=== PATIENT | male | born 1970 | race American Indian/Alaskan Native ===

== ENCOUNTER 2017-09-13 01:59 | Emergency (ER) | payer OTHER ==
[2017-09-13] MEDS ORDERED: PROVENTIL IH ONE (03:22)
[2017-09-13] MEDS ORDERED: DELTASONE PO ONE (04:02)
[2017-09-13] MEDS ORDERED: DUONEB *Not for PRN Use IH ONE ×2 (04:02→04:12)
--- NOTE | 2017-09-13 04:05 | Emergency Department Report ---
ED Asthma HPI - General Chief Complaint: Adult Asthma Stated Complaint: ASTHMA Time Seen by Provider: 09/13/17 03:49 Source: patient Mode of arrival: Ambulatory Limitations: No Limitations - History of Present Illness Initial Comments: 47-year-old male past medical history asthma, intubated in 2004 for asthma exacerbation presents with complaint of one week of intermittent wheezing and shortness of breath. Patient denies chest pain palpitations shortness of breath at rest. Patient is currently awake alert and oriented 3 speaking in full sentences no audible wheezing or stridor no visible dyspnea or respiratory retractions. Patient states he has been out of his asthma medicine for months due to insurance issues. States that he has been intermittently wheezing this week but could no longer tolerate it earlier this afternoon. Patient states he feels significantly better at the moment of interview because he received a nebulized treatment while in triage. Patient denies any productive cough fever or chills. MD Complaint: "asthma attack", shortness of breath, wheezing - Related Data Previous Rx's Medication Instructions Recorded Last Taken Type ALBUTEROL NEB's [Proventil 0.083% 2.5 mg IH Q4H PRN #25 neb 10/26/13 Unknown Rx NEBS] Cyclobenzaprine [Flexeril] 10 mg PO TID PRN #12 tablet 10/26/13 Unknown Rx Ibuprofen [Motrin] 800 mg PO TID PRN #15 tablet 10/26/13 Unknown Rx traMADol [Ultram 50 MG tab] 50 mg PO Q6HR PRN #12 tablet 10/26/13 Unknown Rx ALBUTEROL NEB's [Proventil 0.083% 2.5 mg IH TID PRN #1 box 08/11/14 Unknown Rx NEBS] Albuterol Sulfate [Ventolin HFA] 2 puff IH Q4H PRN #1 hfa.aer.ad 08/11/14 Unknown Rx predniSONE [Deltasone] 20 mg PO TID #15 tablet 08/11/14 Unknown Rx Albuterol Sulfate [Albuterol 0.63% 0.63 mg IH Q4H PRN #1 box 09/13/17 Unknown Rx NEBS] Albuterol Sulfate [Ventolin Hfa] 1 puff IH Q4H PRN #1 hfa.aer.ad 09/13/17 Unknown Rx predniSONE [Deltasone] 40 mg PO QDAY #10 tab 09/13/17 Unknown Rx Allergies Allergy/AdvReac Type Severity Reaction Status Date / Time aspirin Allergy Unknown Verified 07/26/13 09:14 ED Review of Systems ROS: Stated complaint: ASTHMA Other details as noted in HPI Constitutional: denies: chills, fever Eyes: denies: eye pain, eye discharge, vision change ENT: denies: ear pain, throat pain Respiratory: wheezing. denies: cough, shortness of breath Cardiovascular: denies: chest pain, palpitations Endocrine: no symptoms reported Gastrointestinal: denies: abdominal pain, nausea, diarrhea Genitourinary: denies: urgency, dysuria Musculoskeletal: denies: back pain, joint swelling, arthralgia Skin: denies: rash, lesions Neurological: denies: headache, weakness, paresthesias Psychiatric: denies: anxiety, depression Hematological/Lymphatic: denies: easy bleeding, easy bruising ED Past Medical Hx - Past Medical History Hx Asthma: Yes - Surgical History Additional Surgical History: intubated x 1 2004 - Social History Smoking Status: Never Smoker Substance Use Type: None - Medications Home Medications: Home Medications Medication Instructions Recorded Confirmed Last Taken Type ALBUTEROL NEB's [Proventil 0.083% 2.5 mg IH Q4H PRN #25 neb 10/26/13 Unknown Rx NEBS] Cyclobenzaprine [Flexeril] 10 mg PO TID PRN #12 tablet 10/26/13 Unknown Rx Ibuprofen [Motrin] 800 mg PO TID PRN #15 tablet 10/26/13 Unknown Rx traMADol [Ultram 50 MG tab] 50 mg PO Q6HR PRN #12 tablet 10/26/13 Unknown Rx ALBUTEROL NEB's [Proventil 0.083% 2.5 mg IH TID PRN #1 box 08/11/14 Unknown Rx NEBS] Albuterol Sulfate [Ventolin HFA] 2 puff IH Q4H PRN #1 hfa.aer.ad 08/11/14 Unknown Rx predniSONE [Deltasone] 20 mg PO TID #15 tablet 08/11/14 Unknown Rx Albuterol Sulfate [Albuterol 0.63% 0.63 mg IH Q4H PRN #1 box 09/13/17 Unknown Rx NEBS] Albuterol Sulfate [Ventolin Hfa] 1 puff IH Q4H PRN #1 hfa.aer.ad 09/13/17 Unknown Rx predniSONE [Deltasone] 40 mg PO QDAY #10 tab 09/13/17 Unknown Rx ED Physical Exam - General Limitations: No Limitations General appearance: alert, in no apparent distress - Head Head exam: Present: atraumatic, normocephalic - Eye Eye exam: Present: normal appearance, PERRL, EOMI - ENT ENT exam: Present: mucous membranes moist - Neck Neck exam: Present: normal inspection, full ROM - Respiratory Respiratory exam: Present: normal lung sounds bilaterally (no wheezing on auscultation of lungs bilaterally, no respiratory retractions no sternal retractions on exam). Absent: respiratory distress - Cardiovascular Cardiovascular Exam: Present: regular rate, normal rhythm. Absent: systolic murmur, diastolic murmur, rubs, gallop - GI/Abdominal GI/Abdominal exam: Present: soft, normal bowel sounds - Rectal Rectal exam: Present: deferred - Extremities Exam Extremities exam: Present: normal inspection - Back Exam Back exam: Present: normal inspection - Neurological Exam Neurological exam: Present: alert, oriented X3 - Psychiatric Psychiatric exam: Present: normal affect, normal mood - Skin Skin exam: Present: warm, dry, intact, normal color. Absent: rash ED Course Vital Signs 09/13/17 03:16 Temperature 98.3 F Pulse Rate 86 Respiratory 20 Rate Blood Pressure 119/79 O2 Sat by Pulse 96 Oximetry ED Medical Decision Making - Medical Decision Making A/P: Asthma exacerbation, reactive airway disease 1-refill on albuterol inhaler 2-short course prednisone 3-normal vital signs, patient does not have any audible wheezing or stridor or retractions before discharge. 4- vital signs stable 5- patient to follow up with primary care doctor Critical care attestation.: If time is entered above; I have spent that time in minutes in the direct care of this critically ill patient, excluding procedure time. ED Disposition Clinical Impression: Asthma Qualifiers: Asthma severity: mild Asthma persistence: intermittent Asthma complication type : with acute exacerbation Qualified Code(s): J45.21 - Mild intermittent asthma with (acute) exacerbation Disposition: - TO HOME OR SELFCARE Is pt being admited?: No Does the pt Need Aspirin: No Condition: Stable Instructions: Asthma (ED), Reactive Airways Disease (ED) Prescriptions: Albuterol Sulfate [Albuterol 0.63% NEBS] 0.63 mg IH Q4H PRN #1 box PRN Reason: Wheezing Albuterol Sulfate [Ventolin Hfa] 1 puff IH Q4H PRN #1 hfa.aer.ad PRN Reason: Wheezing predniSONE [Deltasone] 40 mg PO QDAY #10 tab Referrals: [facility] [Outside] - 3-5 Days [facility] [Outside] - 3-5 Days Forms: Work/School Release Form(ED) Time of Disposition: 04:07
[2017-09-13 05:09] VITALS: BP 132/86
== END 2017-09-13 05:13 | disposition home or self-care (01) ==
LOC: ED 01:59
DX: J45.21 Mild intermittent asthma with (acute) exacerbation (principal)
CPT/HCPCS: 94640; 99283; J7512

== ENCOUNTER 2017-09-29 10:45 | Emergency (ER) | payer OTHER ==
[2017-09-29] MEDS ORDERED: PROVENTIL IH ONE (16:47)
[2017-09-29 17:25] VITALS: BP 138/77
--- NOTE | 2017-09-29 18:16 | XRay Report ---
FINAL REPORT PROCEDURE: XR CHEST ROUTINE 2V TECHNIQUE: PA and lateral chest radiographs were obtained. CPT 88032 HISTORY: cough COMPARISON: No prior studies are available for comparison. FINDINGS: Heart: Normal. Mediastinum/Vessels: Normal. Lungs/Pleural space: Normal. Bony thorax: No acute osseous abnormality. Other: IMPRESSION: Negative examination.
[2017-09-29] MEDS ORDERED: TESSALON PERLES PO ONE (18:34)
--- NOTE | 2017-09-29 18:34 | Emergency Department Report ---
ED Asthma HPI - General Chief Complaint: Upper Respiratory Infection Stated Complaint: SOB,COUGH Time Seen by Provider: 09/29/17 16:46 Source: patient Mode of arrival: Ambulatory Limitations: No Limitations - History of Present Illness Initial Comments: This is a 47-year-old male nontoxic, well nourished in appearance, no acute signs of distress presents to the ED with c/o of nonproductive cough, wheezing, and shortness of breathe. Patient stated he only feels short of breathe when does physical activity. Patient currently denies any shortness of breathe in the ED. Patient stated he has not taken his inhaler as he does not have it but has taken the nebulizer which he stated made him feel a little better. Patient denies any nausea, vomiting, chest pain, shortness of breathe, fever, chills, headache, stiff neck, body aches, or difficulty breathing. Patient denies any recent travels, long car rides, or recent hospital stays. Patient denies any calf pain, calf tenderness, or hemoptysis. Patient stated has allergies to aspirin. PMH includes asthma. Patient also stated that he was here 2 weeks ago for the same complaint and received prednisone and albuterol which symptoms subsided and returned today. MD Complaint: "asthma attack", shortness of breath, wheezing -: days(s) (1) Asthma History: childhood onset, history of prior ED visit Severity: mild Context: none known, ran out of meds Associated Symptoms: dry cough Treatments Prior to Arrival: inhaled bronchodilator - Related Data Current Asthma Therapy: inhaled bronchodilator Previous Rx's Medication Instructions Recorded Last Taken Type ALBUTEROL NEB's [Proventil 0.083% 2.5 mg IH Q4H PRN #25 neb 10/26/13 Unknown Rx NEBS] Cyclobenzaprine [Flexeril] 10 mg PO TID PRN #12 tablet 10/26/13 Unknown Rx Ibuprofen [Motrin] 800 mg PO TID PRN #15 tablet 10/26/13 Unknown Rx traMADol [Ultram 50 MG tab] 50 mg PO Q6HR PRN #12 tablet 10/26/13 Unknown Rx ALBUTEROL NEB's [Proventil 0.083% 2.5 mg IH TID PRN #1 box 08/11/14 Unknown Rx NEBS] Albuterol Sulfate [Ventolin HFA] 2 puff IH Q4H PRN #1 hfa.aer.ad 08/11/14 Unknown Rx predniSONE [Deltasone] 20 mg PO TID #15 tablet 08/11/14 Unknown Rx Albuterol Sulfate [Albuterol 0.63% 0.63 mg IH Q4H PRN #1 box 09/13/17 Unknown Rx NEBS] Albuterol Sulfate [Ventolin Hfa] 1 puff IH Q4H PRN #1 hfa.aer.ad 09/13/17 Unknown Rx predniSONE [Deltasone] 40 mg PO QDAY #10 tab 09/13/17 Unknown Rx ALBUTEROL Inhaler [ProAir HFA 2 puff IH QID PRN #1 inhalation 09/29/17 Unknown Rx Inhaler] ALBUTEROL NEB's [Proventil 0.083% 2.5 mg IH Q4H PRN #30 neb 09/29/17 Unknown Rx NEBS] predniSONE [Deltasone] 40 mg PO QDAY #5 tab 09/29/17 Unknown Rx Allergies Allergy/AdvReac Type Severity Reaction Status Date / Time aspirin Allergy Unknown Verified 07/26/13 09:14 ED Review of Systems ROS: Stated complaint: SOB,COUGH Other details as noted in HPI Constitutional: denies: chills, fever Eyes: denies: eye pain, eye discharge, vision change ENT: denies: ear pain, throat pain Respiratory: cough, shortness of breath, wheezing Cardiovascular: denies: chest pain, palpitations Endocrine: no symptoms reported Gastrointestinal: denies: abdominal pain, nausea, diarrhea Genitourinary: denies: urgency, dysuria Musculoskeletal: denies: back pain, joint swelling, arthralgia Skin: denies: rash, lesions Neurological: denies: headache, weakness, paresthesias Psychiatric: denies: anxiety, depression Hematological/Lymphatic: denies: easy bleeding, easy bruising ED Past Medical Hx - Past Medical History Hx Asthma: Yes - Surgical History Additional Surgical History: intubated x 1 2004 - Social History Smoking Status: Never Smoker Substance Use Type: None - Medications Home Medications: Home Medications Medication Instructions Recorded Confirmed Last Taken Type ALBUTEROL NEB's [Proventil 0.083% 2.5 mg IH Q4H PRN #25 neb 10/26/13 Unknown Rx NEBS] Cyclobenzaprine [Flexeril] 10 mg PO TID PRN #12 tablet 10/26/13 Unknown Rx Ibuprofen [Motrin] 800 mg PO TID PRN #15 tablet 10/26/13 Unknown Rx traMADol [Ultram 50 MG tab] 50 mg PO Q6HR PRN #12 tablet 10/26/13 Unknown Rx ALBUTEROL NEB's [Proventil 0.083% 2.5 mg IH TID PRN #1 box 08/11/14 Unknown Rx NEBS] Albuterol Sulfate [Ventolin HFA] 2 puff IH Q4H PRN #1 hfa.aer.ad 08/11/14 Unknown Rx predniSONE [Deltasone] 20 mg PO TID #15 tablet 08/11/14 Unknown Rx Albuterol Sulfate [Albuterol 0.63% 0.63 mg IH Q4H PRN #1 box 09/13/17 Unknown Rx NEBS] Albuterol Sulfate [Ventolin Hfa] 1 puff IH Q4H PRN #1 hfa.aer.ad 09/13/17 Unknown Rx predniSONE [Deltasone] 40 mg PO QDAY #10 tab 09/13/17 Unknown Rx ALBUTEROL Inhaler [ProAir HFA 2 puff IH QID PRN #1 inhalation 09/29/17 Unknown Rx Inhaler] ALBUTEROL NEB's [Proventil 0.083% 2.5 mg IH Q4H PRN #30 neb 09/29/17 Unknown Rx NEBS] predniSONE [Deltasone] 40 mg PO QDAY #5 tab 09/29/17 Unknown Rx ED Physical Exam - General Limitations: No Limitations General appearance: alert, in no apparent distress - Head Head exam: Present: atraumatic, normocephalic, normal inspection - Eye Eye exam: Present: normal appearance, PERRL, EOMI. Absent: scleral icterus, conjunctival injection, nystagmus, periorbital swelling, periorbital tenderness Pupils: Present: normal accommodation - ENT ENT exam: Present: normal exam, normal orophraynx, mucous membranes moist, TM's normal bilaterally, normal external ear exam - Neck Neck exam: Present: normal inspection, full ROM. Absent: tenderness, meningismus, lymphadenopathy, thyromegaly - Respiratory Respiratory exam: Present: normal lung sounds bilaterally, wheezes. Absent: respiratory distress, rales, rhonchi, stridor, chest wall tenderness, accessory muscle use, decreased breath sounds, prolonged expiratory - Cardiovascular Cardiovascular Exam: Present: regular rate, normal rhythm, normal heart sounds. Absent: bradycardia, tachycardia, irregular rhythm, systolic murmur, diastolic murmur, rubs, gallop - GI/Abdominal GI/Abdominal exam: Present: soft, normal bowel sounds. Absent: distended, tenderness, guarding, rebound, rigid, diminished bowel sounds - Rectal Rectal exam: Present: deferred - Extremities Exam Extremities exam: Present: normal inspection, full ROM, normal capillary refill. Absent: tenderness, pedal edema, joint swelling, calf tenderness - Back Exam Back exam: Present: normal inspection, full ROM. Absent: tenderness, CVA tenderness (R), CVA tenderness (L), muscle spasm, paraspinal tenderness, vertebral tenderness, rash noted - Neurological Exam Neurological exam: Present: alert, oriented X3, CN II-XII intact, normal gait, reflexes normal - Psychiatric Psychiatric exam: Present: normal affect, normal mood - Skin Skin exam: Present: warm, dry, intact, normal color. Absent: rash ED Course Vital Signs 09/29/17 09/29/17 09/29/17 11:27 16:49 17:04 Temperature 98.1 F Pulse Rate 84 Pulse Rate [ 82 Throughout] Respiratory 20 22 Rate Respiratory 18 Rate [ Throughout] Blood Pressure 135/83 O2 Sat by Pulse 95 Oximetry 09/29/17 09/29/17 17:15 17:25 Temperature Pulse Rate 78 Pulse Rate [ 84 Throughout] Respiratory 18 Rate Respiratory 18 Rate [ Throughout] Blood Pressure 138/77 O2 Sat by Pulse 100 Oximetry - Reevaluation(s) Reevaluation #1: 09/29/17 18:38 Patient is speaking in full sentences with no signs of distress noted. Reevaluation #2: 09/29/17 18:38 Post medical treatment: Patient stated he feels much better and denies shortness of breathe. Wheezing has subsided upon auscultation. Patient is smiling and talking with no signs of distress noted. ED Medical Decision Making - Medical Decision Making This is a 47-year-old male that presents with asthma exacerbation. Patient is stable and was examined by me. Chest xray has been obtained and dictated by radiologist with normal exam. Patient is notified of xray results with no questions noted by the patient. Negative influenza swab. Patient received DuoNeb and solu-medrol in the ED which patient stated symptoms has improved and subsided. Patient is discharge with albuterol and prednisone. Wells criteria 0 points. Patient was instructed Follow-up with a primary care doctor in 3-5 days or if symptoms worsen and continue return to emergency room as soon as possible. At time time of discharge, the patient does not seem toxic or ill in appearance. No acute signs of distress noted. Patient agrees to discharge treatment plan of care. No further questions noted by the patient. Vitals signs are stable prior to discharge. Critical care attestation.: If time is entered above; I have spent that time in minutes in the direct care of this critically ill patient, excluding procedure time. ED Disposition Clinical Impression: Asthma exacerbation Qualifiers: Asthma severity: mild Asthma persistence: intermittent Qualified Code(s): J45.21 - Mild intermittent asthma with (acute) exacerbation Disposition: - TO HOME OR SELFCARE Is pt being admited?: No Does the pt Need Aspirin: No Condition: Stable Instructions: Asthma (ED), Prednisone (By mouth), Albuterol (By breathing) Additional Instructions: Follow-up with a primary care doctor in 3-5 days or if symptoms worsen and continue return to emergency room as soon as possible. Prescriptions: ALBUTEROL Inhaler [ProAir HFA Inhaler] 2 puff IH QID PRN #1 inhalation PRN Reason: Shortness Of Breath ALBUTEROL NEB's [Proventil 0.083% NEBS] 2.5 mg IH Q4H PRN #30 neb PRN Reason: Wheezing predniSONE [Deltasone] 40 mg PO QDAY #5 tab Referrals: PRIMARY CAREMD [Primary Care Provider] - 3-5 Days SHAUNA VARGHESE MD [Staff Physician] - 3-[address] [facility] [Outside] - 3-5 Days [facility] [Outside] - 3-5 Days Forms: Work/School Release Form(ED)
== END 2017-09-29 19:18 | disposition home or self-care (01) ==
LOC: ED 10:45
DX: J45.21 Mild intermittent asthma with (acute) exacerbation (principal)
CPT/HCPCS: 71046; 87400; 94644; 96372; 99284; J2930

== ENCOUNTER 2018-02-27 11:26 | Emergency (ER) | payer OTHER ==
--- NOTE | 2018-02-27 12:49 | Emergency Department Report ---
Blank Doc - Documentation Documentation: 47 yo male with a past medical history asthma without any previous surgeries presents to Hospital complaining of denies abdominal aching pain after by mouth intake, nausea, and loose stools. Symptoms started 4 days ago with pain and nausea. No vomiting reported. Patient had one loose stool today. No melena, hematochezia, hematemesis, fever, recent travel, sick contacts, recent antibiotic use. Pain described as intermittent, aching, in mild to moderate in intensity. cbc, bmp, lipase pending minimal right-sided abdominal tenderness without isolated tenderness at the gallbladder or appendix. pt to be seen by midlevel
[2018-02-27 13:32] LABS: Basophils % (Auto) 0.3 % (0.0-1.8); Eosinophils # (Auto) 0.1 K/mm3 (0.0-0.4); Eosinophils % (Auto) 3.4 % (0.0-4.3); Hematocrit 41.4 % (35.5-45.6); Hemoglobin 13.9 gm/dl (11.8-15.2); Lymphocytes # (Auto) 1.4 K/mm3 (1.2-5.4); Lymphocytes % (Auto) 33.8 % (13.4-35.0); Mean Corpuscular HGB Conc 34 % (32-34); Mean Corpuscular Hemoglobin 27 pg (28-32); Mean Corpuscular Volume 80 fl (84-94); Monocytes # (Auto) 0.4 K/mm3 (0.0-0.8); Monocytes % (Auto) 9.3 % (0.0-7.3); Platelet Count 254 K/mm3 (140-440); Red Cell Distribution Width 14.3 % (13.2-15.2)
[2018-02-27 13:41] LABS: Alanine Aminotransferase 13 units/L (7-56); Albumin 4.2 g/dL (3.9-5); BUN/Creatinine Ratio 15; Blood Urea Nitrogen 12 mg/dL (9-20); Calcium 9.4 mg/dL (8.4-10.2); Hemolysis Index 1; Lipase 22 units/L (13-60)
[2018-02-27] MEDS ORDERED: PEPCID PO ONE (14:02)
--- NOTE | 2018-02-27 14:10 | Emergency Department Report ---
ED Abdominal Pain HPI - General Chief Complaint: Abdominal Pain Stated Complaint: ABDOMINAL PAIN Time Seen by Provider: 02/27/18 12:20 Source: patient Mode of arrival: Ambulatory Limitations: No Limitations - History of Present Illness Initial Comments: 47-year-old male past medical history obesity, asthma presents with complaint of more than 1 week of abdominal pain across abdomen. Denies fevers or chills. Denies chest pain or shortness of breath or palpitations. Denies any paresthesias. States that it is slightly worse after he eats. Patient states he goes prolonged periods of time without eating due to work. Patient is awake alert and oriented 3 not in acute distress. MD Complaint: abdominal pain - Related Data Previous Rx's Medication Instructions Recorded Last Taken Type ALBUTEROL NEB's [Proventil 0.083% 2.5 mg IH Q4H PRN #25 neb 10/26/13 Unknown Rx NEBS] Cyclobenzaprine [Flexeril] 10 mg PO TID PRN #12 tablet 10/26/13 Unknown Rx Ibuprofen [Motrin] 800 mg PO TID PRN #15 tablet 10/26/13 Unknown Rx traMADol [Ultram 50 MG tab] 50 mg PO Q6HR PRN #12 tablet 10/26/13 Unknown Rx ALBUTEROL NEB's [Proventil 0.083% 2.5 mg IH TID PRN #1 box 08/11/14 Unknown Rx NEBS] Albuterol Sulfate [Ventolin HFA] 2 puff IH Q4H PRN #1 hfa.aer.ad 08/11/14 Unknown Rx predniSONE [Deltasone] 20 mg PO TID #15 tablet 08/11/14 Unknown Rx Albuterol Sulfate [Albuterol 0.63% 0.63 mg IH Q4H PRN #1 box 09/13/17 Unknown Rx NEBS] Albuterol Sulfate [Ventolin Hfa] 1 puff IH Q4H PRN #1 hfa.aer.ad 09/13/17 Unknown Rx predniSONE [Deltasone] 40 mg PO QDAY #10 tab 09/13/17 Unknown Rx ALBUTEROL Inhaler [ProAir HFA 2 puff IH QID PRN #1 inhalation 09/29/17 Unknown Rx Inhaler] ALBUTEROL NEB's [Proventil 0.083% 2.5 mg IH Q4H PRN #30 neb 09/29/17 Unknown Rx NEBS] predniSONE [Deltasone] 40 mg PO QDAY #5 tab 09/29/17 Unknown Rx Esomeprazole Magnesium [NexIUM] 20 mg PO QDAY #30 cap 02/27/18 Unknown Rx Famotidine [Pepcid] 20 mg PO BID PRN #30 tablet 02/27/18 Unknown Rx Ondansetron [Zofran Odt] 4 mg PO Q8H PRN #12 tab.rapdis 02/27/18 Unknown Rx Allergies Allergy/AdvReac Type Severity Reaction Status Date / Time aspirin Allergy Unknown Verified 07/26/13 09:14 ED Review of Systems ROS: Stated complaint: ABDOMINAL PAIN Other details as noted in HPI Constitutional: denies: chills, fever Eyes: denies: eye pain, eye discharge, vision change ENT: denies: ear pain, throat pain Respiratory: denies: cough, shortness of breath, wheezing Cardiovascular: denies: chest pain, palpitations Endocrine: no symptoms reported Gastrointestinal: abdominal pain, nausea. denies: diarrhea Genitourinary: denies: urgency, dysuria Musculoskeletal: denies: back pain, joint swelling, arthralgia Skin: denies: rash, lesions Neurological: denies: headache, weakness, paresthesias Psychiatric: denies: anxiety, depression Hematological/Lymphatic: denies: easy bleeding, easy bruising ED Past Medical Hx - Past Medical History Hx Asthma: Yes - Surgical History Past Surgical History?: No Additional Surgical History: intubated x 1 2005 - Social History Smoking Status: Never Smoker Substance Use Type: None - Medications Home Medications: Home Medications Medication Instructions Recorded Confirmed Last Taken Type ALBUTEROL NEB's [Proventil 0.083% 2.5 mg IH Q4H PRN #25 neb 10/26/13 Unknown Rx NEBS] Cyclobenzaprine [Flexeril] 10 mg PO TID PRN #12 tablet 10/26/13 Unknown Rx Ibuprofen [Motrin] 800 mg PO TID PRN #15 tablet 10/26/13 Unknown Rx traMADol [Ultram 50 MG tab] 50 mg PO Q6HR PRN #12 tablet 10/26/13 Unknown Rx ALBUTEROL NEB's [Proventil 0.083% 2.5 mg IH TID PRN #1 box 08/11/14 Unknown Rx NEBS] Albuterol Sulfate [Ventolin HFA] 2 puff IH Q4H PRN #1 hfa.aer.ad 08/11/14 Unknown Rx predniSONE [Deltasone] 20 mg PO TID #15 tablet 08/11/14 Unknown Rx Albuterol Sulfate [Albuterol 0.63% 0.63 mg IH Q4H PRN #1 box 09/13/17 Unknown Rx NEBS] Albuterol Sulfate [Ventolin Hfa] 1 puff IH Q4H PRN #1 hfa.aer.ad 09/13/17 Unknown Rx predniSONE [Deltasone] 40 mg PO QDAY #10 tab 09/13/17 Unknown Rx ALBUTEROL Inhaler [ProAir HFA 2 puff IH QID PRN #1 inhalation 09/29/17 Unknown Rx Inhaler] ALBUTEROL NEB's [Proventil 0.083% 2.5 mg IH Q4H PRN #30 neb 09/29/17 Unknown Rx NEBS] predniSONE [Deltasone] 40 mg PO QDAY #5 tab 09/29/17 Unknown Rx Esomeprazole Magnesium [NexIUM] 20 mg PO QDAY #30 cap 02/27/18 Unknown Rx Famotidine [Pepcid] 20 mg PO BID PRN #30 tablet 02/27/18 Unknown Rx Ondansetron [Zofran Odt] 4 mg PO Q8H PRN #12 tab.rapdis 02/27/18 Unknown Rx ED Physical Exam - General Limitations: No Limitations General appearance: alert, in no apparent distress - Head Head exam: Present: atraumatic, normocephalic - Eye Eye exam: Present: normal appearance, PERRL, EOMI - ENT ENT exam: Present: mucous membranes moist - Neck Neck exam: Present: normal inspection - Respiratory Respiratory exam: Present: normal lung sounds bilaterally. Absent: respiratory distress - Cardiovascular Cardiovascular Exam: Present: regular rate, normal rhythm. Absent: systolic murmur, diastolic murmur, rubs, gallop - GI/Abdominal GI/Abdominal exam: Present: soft, tenderness (slight epigastric discomfort on palpation. No flank tenderness. No palpable mass or bruit), normal bowel sounds - Rectal Rectal exam: Present: deferred - Extremities Exam Extremities exam: Present: normal inspection - Back Exam Back exam: Present: normal inspection - Neurological Exam Neurological exam: Present: alert, oriented X3 - Psychiatric Psychiatric exam: Present: normal affect, normal mood - Skin Skin exam: Present: warm, dry, intact, normal color. Absent: rash ED Course Vital Signs 02/27/18 02/27/18 11:35 14:24 Temperature 98.1 F 97.8 F Pulse Rate 86 68 Respiratory 16 16 Rate Blood Pressure 118/61 Blood Pressure 126/72 [Left] O2 Sat by Pulse 96 99 Oximetry ED Medical Decision Making - Lab Data Result diagrams: 02/27/18 12:29 02/27/18 12:29 - Medical Decision Making A/P: Possible peptic ulcer disease 1-antacids, follow up with primary care and GI 2-vital signs stable 3-labs unremarkable Critical care attestation.: If time is entered above; I have spent that time in minutes in the direct care of this critically ill patient, excluding procedure time. ED Disposition Clinical Impression: Dyspepsia Abdominal pain Qualifiers: Abdominal location: epigastric Qualified Code(s): R10.13 - Epigastric pain Disposition: TO HOME OR SELFCARE Is pt being admited?: No Does the pt Need Aspirin: No Condition: Stable Instructions: Peptic Ulcer (ED), Gastritis (ED), Diet for Ulcers and Gastritis (ED) Prescriptions: Esomeprazole Magnesium [NexIUM] 20 mg PO QDAY #30 cap Famotidine [Pepcid] 20 mg PO BID PRN #30 tablet PRN Reason: Indigestion Ondansetron [Zofran Odt] 4 mg PO Q8H PRN #12 tab.rapdis PRN Reason: Nausea Referrals: [facility] [Provider Group] - 3-5 Days Forms: Work/School Release Form(ED) Time of Disposition: 14:12
[2018-02-27 14:25] VITALS: BP 126/72
== END 2018-02-27 14:24 | disposition home or self-care (01) ==
LOC: ED 11:26
DX: R10.13 Epigastric pain (principal); J45.909 Unspecified asthma, uncomplicated
CPT/HCPCS: 36415; 80053; 83690; 85025

== ENCOUNTER 2022-05-20 14:07 | Emergency (ER) | payer OTHER ==
[2022-05-20 22:30] LABS: Basophils % (Auto) 0.5 % (0.0-1.8); Eosinophils # (Auto) 0.2 K/mm3 (0.0-0.4); Hematocrit 43.3 % (35.5-45.6); Hemoglobin 14.6 gm/dl (11.8-15.2); Lymphocytes # (Auto) 2.4 K/mm3 (1.2-5.4); Lymphocytes % (Auto) 40.7 % (13.4-35.0); Mean Corpuscular HGB Conc 34 % (32-34); Mean Corpuscular Volume 81 fl (84-94); Monocytes # (Auto) 0.5 K/mm3 (0.0-0.8); Monocytes % (Auto) 8.8 % (0.0-7.3); Platelet Count 252 K/mm3 (140-440); Red Blood Count 5.38 M/mm3 (3.65-5.03); Red Cell Distribution Width 15.7 % (13.2-15.2)
--- NOTE | 2022-05-20 22:34 | XRay Report ---
LUMBAR SPINE 3 VIEWS INDICATION / CLINICAL INFORMATION: back pain with neuropaty. COMPARISON: None available. FINDINGS: No acute fracture. No significant malalignment. Small anterior endplate osteophytes. The L1 vertebral body demonstrates subtle increase in density compared to the adjacent T12 and L2 vertebral bodies. S ignificance of this finding is uncertain. Mild facet arthropathy most prevalent at L3-4 through L5-S1 . Gas pattern unremarkable. No obvious nephroliths. IMPRESSION: 1. Subtle increase in density within the L1 vertebral body is nonspecific and may simply reflect proj ection. CT would be useful for further characterization if clinically significant. 2. No evidence of acute fracture. Mild facet degenerative changes primarily in the lower lumbar spine . Signer Name: Aubrey Nelson II, MD Signed: 05/20/2022 10:29 PM Workstation Name: [id number]
[2022-05-20 22:44] LABS: BUN/Creatinine Ratio 10; Blood Urea Nitrogen 9 mg/dL (9-20); Calcium 8.9 mg/dL (8.4-10.2); Hemolysis Index 5
--- NOTE | 2022-05-21 01:49 | Emergency Department Report ---
ED General Adult HPI - General Chief complaint: Extremity Injury, Lower Stated complaint: LEGS ARE TINGLING/PAIN Time Seen by Provider: 05/20/22 20:53 Source: patient Mode of arrival: Ambulatory Limitations: No Limitations - History of Present Illness Initial comments: 31-year-old male Shankar Khoury complaining of a few day history of lower extremity numbness tingling and shooting pain that shoots up the legs and has been progressive worsening since the onset causing some achiness to the upper thighs as well. He reports no known history of diabetes but was told he is a prediabetic. He denies any injuries. Reports no fever, chills, sweats. No hemoptysis no hematemesis no saddle paresthesia no loss of bowel bladder, no known injury to the foot does have occasional swelling to the lower extremities but reports no calf pain is no long travel trips or no suspicion for any DVT no history of any DVT -: Gradual Location: lower extremity Radiation: non-radiation Severity scale (0 -10): 7 Quality: dull Consistency: constant Improves with: none Worsens with: none Associated Symptoms: denies: confusion, cough, fever/chills, nausea/vomiting, rash - Related Data Previous Rx's Medication Instructions Recorded Last Taken Type ALBUTEROL NEB's [Proventil 0.083% 2.5 mg IH Q4H PRN #25 neb 10/26/13 Unknown Rx NEBS] Cyclobenzaprine [Flexeril] 10 mg PO TID PRN #12 tablet 10/26/13 Unknown Rx Ibuprofen [Motrin] 800 mg PO TID PRN #15 tablet 10/26/13 Unknown Rx traMADoL [Ultram 50 MG tab] 50 mg PO Q6HR PRN #12 tablet 10/26/13 Unknown Rx ALBUTEROL NEB's [Proventil 0.083% 2.5 mg IH TID PRN #1 box 08/11/14 Unknown Rx NEBS] Albuterol Sulfate [Ventolin HFA] 2 puff IH Q4H PRN #1 hfa.aer.ad 08/11/14 Unknown Rx predniSONE [Deltasone] 20 mg PO TID #15 tablet 08/11/14 Unknown Rx Albuterol Sulfate [Albuterol 0.63% 0.63 mg IH Q4H PRN #1 box 09/13/17 Unknown Rx NEBS] Albuterol Sulfate [Ventolin Hfa] 1 puff IH Q4H PRN #1 hfa.aer.ad 09/13/17 Unk nown Rx predniSONE [Deltasone] 40 mg PO QDAY #10 tab 09/13/17 Unknown Rx ALBUTEROL NEB's [Proventil 0.083% 2.5 mg IH Q4H PRN #30 neb 09/29/17 Unknown Rx NEBS] Albuterol Mdi (or & Nicu Only) 2 puff IH QID PRN #1 inhalation 09/29/17 Unknown Rx [ProAir HFA Inhaler] predniSONE [Deltasone] 40 mg PO QDAY #5 tab 09/29/17 Unknown Rx Esomeprazole Magnesium [NexIUM] 20 mg PO QDAY #30 cap 02/27/18 Unknown Rx Famotidine [Pepcid] 20 mg PO BID PRN #30 tablet 02/27/18 Unknown Rx Ondansetron [Zofran Odt] 4 mg PO Q8H PRN #12 tab.rapdis 02/27/18 Unknown Rx methOCARBAMOL [Robaxin TAB] 750 mg PO Q8H PRN #21 05/21/22 Unknown Rx predniSONE [Deltasone] 20 mg PO QDAY #5 tab 05/21/22 Unknown Rx Allergies Allergy/AdvReac Type Severity Reaction Status Date / Time aspirin Allergy Unknown Verified 05/20/22 16:12 ED Review of Systems ROS: Stated complaint: LEGS ARE TINGLING/PAIN Other details as noted in HPI Comment: All other systems reviewed and negative ED Past Medical Hx - Past Medical History Hx Asthma: Yes - Surgical History Additional Surgical History: intubated x 1 2004 - Social History Smoking Status: Never Smoker Substance Use Type: None - Medications Home Medications: Home Medications Medication Instructions Recorded Confirmed Last Taken Type ALBUTEROL NEB's [Proventil 0.083% 2.5 mg IH Q4H PRN #25 neb 10/26/13 Unknown Rx NEBS] Cyclobenzaprine [Flexeril] 10 mg PO TID PRN #12 tablet 10/26/13 Unknown Rx Ibuprofen [Motrin] 800 mg PO TID PRN #15 tablet 10/26/13 Unknown Rx traMADoL [Ultram 50 MG tab] 50 mg PO Q6HR PRN #12 tablet 10/26/13 Unknown Rx ALBUTEROL NEB's [Proventil 0.083% 2.5 mg IH TID PRN #1 box 08/11/14 Unknown Rx NEBS] Albuterol Sulfate [Ventolin HFA] 2 puff IH Q4H PRN #1 hfa.aer.ad 08/11/14 Unknown Rx predniSONE [Deltasone] 20 mg PO TID #15 tablet 08/11/14 Unknown Rx Albuterol Sulfate [Albuterol 0.63% 0.63 mg IH Q4H PRN #1 box 09/13/17 Unknown Rx NEBS] Albuterol Sulfate [Ventolin Hfa] 1 puff IH Q4H PRN #1 hfa.aer.ad 09/13/17 Unknown Rx predniSONE [Deltasone] 40 mg PO QDAY #10 tab 09/13/17 Unknown Rx ALBUTEROL NEB's [Proventil 0.083% 2.5 mg IH Q4H PRN #30 neb 09/29/17 Unknown Rx NEBS] Albuterol Mdi (or & Nicu Only) 2 puff IH QID PRN #1 inhalation 09/29/17 Unknown Rx [ProAir HFA Inhaler] predniSONE [Deltasone] 40 mg PO QDAY #5 tab 09/29/17 Unknown Rx Esomeprazole Magnesium [NexIUM] 20 mg PO QDAY #30 cap 02/27/18 Unknown Rx Famotidine [Pepcid] 20 mg PO BID PRN #30 tablet 02/27/18 Unknown Rx Ondansetron [Zofran Odt] 4 mg PO Q8H PRN #12 tab.rapdis 02/27/18 Unknown Rx methOCARBAMOL [Robaxin TAB] 750 mg PO Q8H PRN #21 05/21/22 Unknown Rx predniSONE [Deltasone] 20 mg PO QDAY #5 tab 05/21/22 Unknown Rx ED Physical Exam - General Limitations: No Limitations General appearance: alert, in no apparent distress - Head Head exam: Present: atraumatic, normocephalic - Eye Eye exam: Present: normal appearance - ENT ENT exam: Present: mucous membranes moist - Neck Neck exam: Present: normal inspection - Respiratory Respiratory exam: Present: normal lung sounds bilaterally. Absent: respiratory distress - Cardiovascular Cardiovascular Exam: Present: regular rate, normal rhythm. Absent: systolic murmur, diastolic murmur, rubs, gallop - GI/Abdominal GI/Abdominal exam: Present: soft, normal bowel sounds - Rectal Rectal exam: Present: deferred - Extremities Exam Extremities exam: Present: normal inspection, normal capillary refill, pedal edema (Nonpitting), other (Pulses 2+ capillary refills are brisk. No rashes are noted.). Absent: tenderness, joint swelling, calf tenderness - Back Exam Back exam: Present: normal inspection, paraspinal tenderness. Absent: CVA tenderness (R), CVA tenderness (L), muscle spasm - Neurological Exam Neurological exam: Present: alert, oriented X3, CN II-XII intact, normal gait, reflexes normal. Absent: motor sensory deficit - Psychiatric Psychiatric exam: Present: normal affect, normal mood - Skin Skin exam: Present: warm, dry, intact, normal color. Absent: rash ED Course Vital Signs 05/20/22 05/20/22 16:09 21:29 Temperature 98.7 F Pulse Rate 69 60 Respiratory 16 12 Rate Blood Pressure 122/79 130/81 [Right] O2 Sat by Pulse 96 100 Oximetry ED Medical Decision Making - Lab Data Result diagrams: 05/20/22 22:00 05/20/22 22:00 - Radiology Data Radiology results: [place] [address] XRay Report Signed Patient: STEWART ESPINOZA MR#: [id number] : 1970 Acct:[id number] Age/Sex: 51 / M ADM Date: 05/20/22 Loc: ED Attending Dr: Ordering Physician: VIC BAUGH Date of Service: 05/20/22 Procedure(s): XR spine lumbosacral 2-3V Accession Number(s): [id number] cc: VIC BAUGH Fluoro Time In Minutes: LUMBAR SPINE 3 VIEWS INDICATION / CLINICAL INFORMATION: back pain with neuropaty. COMPARISON: None available. FINDINGS: No acute fracture. No significant malalignment. Small anterior endplate osteophytes. The L1 vertebral body demonstrates subtle increase in density compared to the adjacent T12 and L2 vertebral bodies. Significance of this finding is uncertain. Mild facet arthropathy most prevalent at L3-4 through L5-S1. Gas pattern unremarkable. No obvious nephroliths. IMPRESSION: 1. Subtle increase in density within the L1 vertebral body is nonspecific and may simply reflect projection. CT would be useful for further characterization if clinically significant. 2. No evidence of acute fracture. Mild facet degenerative changes primarily in the lower lumbar spine. Signer Name: Adeline Hall II, MD Signed: 05/20/2022 10:29 PM Workstation Name: [id number] Transcribed By: JAILENE Dictated By: ADELIEN HALL II, MD Electronically Authenticated By: ADELINE HALL II, MD Signed Date/Time: 05/20/222228 DD/ 26 TD/TT: Print Cancel Critical care attestation.: If time is entered above; I have spent that time in minutes in the direct care of this critically ill patient, excluding procedure time. ED Disposition Clinical Impression: Back pain with radiculopathy Disposition: HOME / SELF CARE / HOMELESS Is pt being admited?: No Does the pt Need Aspirin: No Condition: Stable Instructions: Radicular Pain Prescriptions: predniSONE [Deltasone] 20 mg PO QDAY #5 tab methOCARBAMOL [Robaxin TAB] 750 mg PO Q8H PRN #21 PRN Reason: back pain Referrals: [facility] [Provider Group] - 3-5 Days
[2022-05-21 02:13] VITALS: BP 128/83
== END 2022-05-21 02:25 | disposition home or self-care (01) ==
LOC: ED 14:07
DX: M54.12 Radiculopathy, cervical region (principal); J45.909 Unspecified asthma, uncomplicated; Z91.09 Other allergy status, other than to drugs and biological substances
CPT/HCPCS: 36415; 72100; 80048; 82962; 85025; 99284